=== PATIENT | male | born 2000 | race Hispanic/Latino ===

== ENCOUNTER 2025-06-26 05:46 | Emergency (ER) | payer SELFPAY ==
[2025-06-26] MEDS ORDERED: KETOROLAC 30 MG/ML INJ ONE (06:08)
[2025-06-26] MEDS ORDERED: ACETAMINOPHEN 500 MG TAB ONE (06:08)
--- NOTE | 2025-06-26 06:49 | RAD REPORT ---
EXAM: C Spine Wo Con HISTORY: PAIN COMPARISON: None TECHNIQUE: Multiple contiguous axial images were obtained in a CT of the cervical spine without IV co ntrast. Sagittal and coronal reformats were performed. One or more of the following dose reduction techniques were used: Automated exposure control, adjustment of the mA and kV according to patient si ze, and iterative reconstruction. Unless otherwise specified, incidental findings do not require dedicated imaging follow-up. FINDINGS: The vertebral bodies and intervertebral discs demonstrate normal height and alignment without fractur e or subluxation. Mild straightening of normal cervical stenosis which could be positional or secondary to muscle spasm. No degenerative changes are present. No prevertebral soft tissue swelling is seen. The posterior facets are well aligned. Normal alignment of the skull base with the cervical spine is seen. The lung apices are unremarkable. The cervical soft tissues are unremarkable. IMPRESSION: No evidence of acute osseous abnormality of the cervical spine.
--- NOTE | 2025-06-26 06:56 | EDPHYS ---
Physician Documentation [facility] Name: Delano Garduno Age: 24 yrs Sex: Male : 2000 Arrival Date: 06/26/2025 Time: 05:46 Bed 14 Private MD: ED Physician Xu Gonzales HPI: 06/26 06:58 This 24 yrs old Male presents to ER via Ambulatory with complaints of Neck tt7 Injury, Shoulder Pain. 06:58 The patient or guardian complains of an injury. The symptoms are located on the right tt7 lateral aspect of neck. Onset: The symptoms/episode began/occurred just prior to arrival. Context: The neck injury/problem resulted from playing sports. Associated signs and symptoms: Pertinent negatives: headache, bladder incontinence, bowel incontinence, nausea, numbness, tingling, vomiting, weakness. The pain radiates to the right trapezius. Modifying factors: The symptoms are alleviated by nothing. the symptoms are aggravated by movement. Severity of symptoms: At their worst the symptoms were moderate, in the emergency department the symptoms are unchanged. The patient has not experienced similar symptoms in the past. Patient felt "pop" in neck when weightlifting, was able to re-rack barbell. Right lateral neck pain afterwards. No other symptoms. Historical: - Allergies: 06:09 No Known Allergies; jj7 - PMHx: 06:09 None; jj7 - PSHx: 06:09 None; jj7 - Immunization history:: Adult Immunizations up to date. - Infectious Disease History:: Denies. - Social history:: Smoking status: Reported history of juuling and/or vaping. Patient uses alcohol, occasionally. Patient/guardian denies using street drugs, IV drugs. ROS: 07:01 Constitutional: negative for fever. Cardiovascular: negative for chest pain. tt7 Respiratory: negative for shortness of breath. Abdomen/GI: negative for abdominal pain, nausea, vomiting, diarrhea. Back: Negative for injury and pain, MS/Extremity: negative for injury and deformity. Skin: negative for rash. Neuro: negative for focal weakness. 07:01 Neck: Positive for tenderness, Negative for mass, rash, stiffness, swelling, Exam: 07:01 Constitutional: vital signs reviewed, well appearing. Head/Face: normocephalic, tt7 atraumatic. Eyes: no conjunctival injection, anicteric sclerae. ENT: mucus membranes moist. Cardiovascular: regular rate and rhythm, no lower extremity edema. Respiratory: normal respiratory effort, no accessory muscle use. Back: normal ROM. Skin: warm, dry, intact, normal turgor, normal color, no rash. MS/ Extremity: normal ROM of extremities, no gross deformities. Neuro: alert and oriented with appropriate mental status, normal speech, follows commands, no focal neurologic deficits. Psych: appropriate mood and affect. 07:01 Neck: External neck: tenderness, that is mild, Right lateral neck, C-spine: appears grossly normal, ROM/movement: pain, that is mild, with rotation to the right, Meningeal signs: are not present, nuchal rigidity, is not appreciated, Vital Signs: 06:05 BP 122 / 81; Pulse 67; Resp 20; Temp 97.8; Pulse Ox 100% ; Weight 84.37 kg; Height 5 jj7 ft. 6 in. ; 06:08 BP 125 / 83; Pulse 53; Resp 17; Pulse Ox 100% ; Weight 83.91 kg (R); Height 5 ft. 6 in. tb4 (R); Pain 8/10; 06:08 Body Mass Index 29.86 (83.91 kg, 167.64 cm) tb4 06:08 Pain Scale: Adult tb4 MDM: 06:07 Medical Screening Exam initiated tt7 07:03 Differential diagnosis: C-Spine Fracture Cervical Disc Herniation cervical strain, tt7 Spondylolisthesis Spondylosis subluxation, Unstable Vertebral Fracture. Data reviewed: vital signs, nurses notes, radiologic studies, CT scan. I considered the following discharge prescriptions or medication management in the emergency department Antibiotics: At this time antibiotics are not recommended, Medications were administered in the Emergency Department. See MAR. Counseling: I had a detailed discussion with the patient and/or guardian regarding the historical points, exam findings, and any diagnostic results supporting the discharge/admit diagnosis, radiology results, the need for outpatient follow up, to return to the emergency department if symptoms worsen or persist or if there are any questions or concerns that arise at home. ED course: After completion of the patient's emergency department evaluation, I do not suspect a life-threatening or disabling process. Patient is medically stable and not in need of emergent medical intervention. I had a detailed discussion with the patient regarding the historical points, exam findings, emergency department evaluation, diagnostic results, and the discharge diagnosis. I instructed the patient on outpatient management of their condition. I discussed the need for outpatient follow-up with a primary care physician. I informed the patient on return precautions, including the need to return to the ED if symptoms do not improve, worsen, or if there are any questions or concerns that arise at home. The patient was discharged in stable condition. 06/26 06:14 Order name: CT C Spine; Complete Time: 06:53 tt7 Administered Medications: 06:21 Drug: Acetaminophen PO 1000 mg PO once Route: PO; tb4 06:55 Follow up: Response: No adverse reaction; Pain is decreased tb4 06:21 Drug: Ketorolac IM 30 mg IM once Route: IM; Site: left deltoid; tb4 06:55 Follow up: Response: No adverse reaction; Pain is decreased tb4 Disposition: 07:05 Co-signature as Attending Physician, Xu Gonzales DO. tt7 Disposition Summary: 06/26/25 06:55 Discharge Ordered Notes: Location: Home tt7 Problem: new tt7 Symptoms: have improved tt7 Condition: Stable tt7 Diagnosis - NECK PAIN tt7 - CERVICAL MUSCLE SPASM tt7 Followup: tt7 - With: Emergency Department - When: As needed - Reason: Followup: tt7 - With: Private Physician - When: 1 - 2 days - Reason: Recheck today's complaints, Re-evaluation by your physician Discharge Instructions: - Discharge Summary Sheet tt7 - Cervical Sprain, [id number] tt7 Forms: - Medication Reconciliation Form tt7 - Antibiotic Education tt7 - Prescription Opioid Use tt7 - Patient Portal Instructions tt7 - Leadership Thank You Letter tt7 Prescriptions: - methocarbamol 500 mg Oral tablet - take 1 tablet ORAL route 3 times per day As needed; 20 tablet; Refills: 0, tt7 Product Selection Permitted Signatures: Dispatcher [facility] Amber Tavares RN RN jj7 Latoya Mtz RN RN tb4 Xu Gonzales DO DO tt7
--- NOTE | 2025-06-26 06:56 | ER ---
Nurse's Notes [facility] Name: Delano Garduno Age: 24 yrs Sex: Male : 2000 Arrival Date: 06/26/2025 Time: 05:46 Bed 14 Private MD: Diagnosis: NECK PAIN;CERVICAL MUSCLE SPASM Presentation: 06/26 06:05 Chief complaint: Patient states: WAS LIFTING WEIGHTS AND FELT A POP IN HIS NECK. RE jj7 RACKED THE WEIGHTS AND NOW HAVING NECK AND RIGHT SHOULDER PAIN. Coronavirus screen: At this time, the client does not indicate any symptoms associated with coronavirus-19. Ebola Screen: No symptoms or risks identified at this time. Initial Sepsis Screen: Does the patient meet any 2 criteria? No. Patient's initial sepsis screen is negative. Does the patient have a suspected source of infection? No. Patient's initial sepsis screen is negative. Risk Assessment: Do you want to hurt yourself or someone else? Patient reports no desire to harm self or others. Onset of symptoms was June 26, 2025. 06:05 Method Of Arrival: Ambulatory 7 06:05 Acuity: SCARLETT 5 j7 06:05 Note TYLENOL. jj7 Triage Assessment: 06:09 General: Appears in no apparent distress. uncomfortable, Behavior is calm, cooperative, jj7 appropriate for age. Pain: Complains of pain in anterior aspect of right shoulder, posterior aspect of right shoulder and neck. Musculoskeletal: Reports pain in anterior aspect of right shoulder, posterior aspect of right shoulder and neck. Historical: - Allergies: 06:09 No Known Allergies; jj7 - PMHx: 06:09 None; jj7 - PSHx: 06:09 None; jj7 - Immunization history:: Adult Immunizations up to date. - Infectious Disease History:: Denies. - Social history:: Smoking status: Reported history of juuling and/or vaping. Patient uses alcohol, occasionally. Patient/guardian denies using street drugs, IV drugs. Screenin:08 [facility] ED Fall Risk Assessment (Adult) History of falling in the last 3 months, tb4 including since admission No falls in past 3 months (0 pts) Confusion or Disorientation No (0 pts) Intoxicated or Sedated No (0 pts) Impaired Gait No (0 pts) Mobility Assist Device Used No (0 pt) Altered Elimination No (0 pt) Score/Fall Risk Level 0 - 2 = Low Risk Maintained a safe environment. Abuse screen: Denies threats or abuse. Denies injuries from another. Nutritional screening: No deficits noted. Tuberculosis screening: No symptoms or risk factors identified. Assessment: 06:08 General: Appears in no apparent distress. Behavior is calm, cooperative. Pain: tb4 Complains of pain in anterior aspect of right shoulder, right axilla and right bicep Pain radiates to right lateral aspect of neck Pain currently is 8 out of 10 on a pain scale. Quality of pain is described as sharp, shooting, Pain began suddenly, Is continuous. Neuro: Level of Consciousness is awake, alert, obeys commands, Oriented to person, place, time, situation, Moves all extremities. Full function Weakness in right arm(s) from shoulders down, Gait is steady, Speech is normal, Facial symmetry appears normal. Respiratory: Airway is patent Respiratory effort is even, unlabored, Respiratory pattern is regular, symmetrical. GI: No signs and/or symptoms were reported involving the gastrointestinal system. : No signs and/or symptoms were reported regarding the genitourinary system. EENT: No signs and/or symptoms were reported regarding the EENT system. Derm: No signs and/or symptoms reported regarding the dermatologic system. Skin is intact, is healthy with good turgor, Skin is dry, Skin is normal, Skin temperature is warm. Musculoskeletal: Circulation, motion, and sensation intact. Capillary refill < 3 seconds, is brisk, in bilateral fingers. Range of motion: intact in all extremities, Reports pain in right arm and right side of neck. Vital Signs: 06:05 BP 122 / 81; Pulse 67; Resp 20; Temp 97.8; Pulse Ox 100% ; Weight 84.37 kg; Height 5 jj7 ft. 6 in. ; 06:08 BP 125 / 83; Pulse 53; Resp 17; Pulse Ox 100% ; Weight 83.91 kg (R); Height 5 ft. 6 in. tb4 (R); Pain 8/10; 06:08 Body Mass Index 29.86 (83.91 kg, 167.64 cm) tb4 06:08 Pain Scale: Adult tb4 ED Course: 05:49 Patient arrived in ED. gm2 06:06 Xu Gonzales DO is Attending Physician. tt7 06:08 Triage completed. jj7 06:08 Patient has correct armband on for positive identification. Bed in low position. Call tb4 light in reach. Client placed on continuous cardiac and pulse oximetry monitoring. NIBP monitoring applied. Door closed. 06:08 No provider procedures requiring assistance completed. tb4 06:09 Arm band placed on right wrist. Patient placed in an exam room, on a stretcher. jj7 06:45 CT C Spine In Process Unspecified. EDMS 06:59 Keith Moyer, RN is Primary Nurse. bp 07:29 Patient did not have IV access during this emergency room visit. bp Administered Medications: 06:21 Drug: Acetaminophen PO 1000 mg PO once Route: PO; tb4 06:55 Follow up: Response: No adverse reaction; Pain is decreased tb4 06:21 Drug: Ketorolac IM 30 mg IM once Route: IM; Site: left deltoid; tb4 06:55 Follow up: Response: No adverse reaction; Pain is decreased tb4 Medication: 06:08 VIS not applicable for this client. tb4 Outcome: 06:55 Discharge ordered by MD. tt7 07:29 Discharged to home ambulatory, bp 07:29 Condition: stable 07:29 Discharge instructions given to patient, Instructed on discharge instructions, follow up and referral plans. medication usage, Demonstrated understanding of instructions, follow-up care, medications, Prescriptions given X 1, 07:29 Patient left the ED. bp Signatures: Dispatcher [employer] EDHI Keith Moyer, RN Amber Boyd RN RN jj7 Ciera Yoo [facility] Latoya Mtz RN RN tb4 Xu Gonzales DO DO tt7
[2025-06-26 07:49] VITALS: O2SAT 100
[2025-06-26 07:50] VITALS: BP 122/81; TEMP 97.8
== END 2025-06-26 07:29 | disposition home or self-care (01) ==
LOC: ER 05:46
DX: M62.838 Other muscle spasm (principal)
CPT/HCPCS: 72125; 96372; 99284